=== PATIENT | female | born 1930 | race Hispanic/Latino ===

== ENCOUNTER 2019-03-13 11:44 | Observation (INO) | payer MEDICARE ==
[~2019-03-13] VITALS: Ht 152.4 cm; Wt 58.5 kg
[~2019-03-13 11:44] MED LIST: ALENDRONATE SOD70 MG PO; AMIODARONE HCL200 MG PO; GUAIFENESIN400 MG PO; HYDROCHLOROTHIA25 MG PO; LEVOTHYROXINE125 MCG PO; LEVOTHYROXINE75 MCG PO; LORAZEPAM0.5 MG PO; LOSARTAN POTAS100 MG PO; NEXIUM40 M1; NEXIUM40 MG PO; PAROXETINE HCL10 MG PO; PROPRANOLOL HCL20 MG PO
[2019-03-13 12:35] LABS: BASOPHILS % 0.3 % (0.0-1.0); EOSINOPHILS # (AUTO) 0.1 (0.0-0.4); EOSINOPHILS % 0.8 % (0.0-6.0); LYMPHOCYTES # (AUTO) 0.6 (1.0-3.2); LYMPHOCYTES % 6.4 % (18.0-39.1); MEAN CORPUSCULAR HEMOGLOBIN 30.2 pg (28-32); MEAN CORPUSCULAR HGB CONC 34.2 g/dL (31-35); MEAN CORPUSCULAR VOLUME 88.2 fL (81-99); MONOCYTES # (AUTO) 0.4 (0.2-0.8); MONOCYTES % 4.8 % (4.4-11.3); NEUTROPHILS # (AUTO) 7.6 (2.1-6.9); NEUTROPHILS % 87.4 % (38.7-80.0); PLATELET COUNT 137 x10e3/uL (140-360); RED BLOOD COUNT 4.31 x10e6/uL (3.6-5.1); RED CELL DISTRIBUTION WIDTH 14.1 % (11.7-14.4)
[2019-03-13 13:01] LABS: ALBUMIN 3.2 g/dL (3.5-5.0); ANION GAP 12.6 mmol/L (8-16); CALCIUM 8.9 mg/dL (8.4-10.2); CREATININE, SERUM 1.18 mg/dL (0.57-1.11)
[2019-03-13 13:07] LABS: POTASSIUM 2.6 mmol/L (3.5-5.1)
--- NOTE | 2019-03-13 13:12 | NUR ---
RECIVED REPORT FROM SOHA RN; PT IN LOW FOWLERS IN [facility], DENIES ANY C/O PAIN AT THIS TIME, STATES CHEST PAIN INTERMITTENT AND DESCRIBED MILD BURNING IN CHARACTHER, UNABLE TO RATE PAIN FROM 0-10, NAD NOTED, PT A/O X1; CALL LIGHT IN REACH, WILL CONTINUE TO MONITOR.
--- NOTE | 2019-03-13 13:15 | NUR ---
BEDSIDE REPORT TO ROMY Veloz
[2019-03-13 13:18] LABS: BILIRUBIN,URINE LARGE (NEGATIVE); CLARITY,URINE SL CLOUDY (CLEAR); COLOR,URINE BROWN (YELLOW); KETONES,URINE NEGATIVE (NEGATIVE); LEUKOCYTE ESTERASE ,URINE TRACE (NEGATIVE); NITRITE,URINE POSITIVE (NEGATIVE); PROTEIN,URINE DIPSTICK TRACE (NEGATIVE)
[2019-03-13] MEDS ORDERED: SODIUM CHLORIDE 0.9% 500ML 500 ML ONE (13:30)
[2019-03-13] MEDS: POTASSIUM CHLORIDE 10MEQ/100ML 100 ML IV SCH ×4 (13:30→21:51)
[2019-03-13 13:33] LABS: BACTERIA,URINE MANY /HPF; EPITHELIAL CELLS,URINE FEW /LPF
[2019-03-13] MEDS ORDERED: SODIUM CHLORIDE 0.9% 1000ML 1,000 ML IV STA (13:45)
[2019-03-13 13:56] LABS: INR 1.26; PROTHROMBIN TIME 16.4 seconds (11.9-14.5)
[2019-03-13 13:57] LABS: PARTIAL THROMBOPLASTIN TIME 38.3 seconds (23.8-35.5)
[2019-03-13] MEDS ORDERED: CEFTRIAXONE SOD 1 GM/NS 50 ML 50 ML IV ONE (14:00)
[2019-03-13 14:07] LABS: CREATINE KINASE MB 10.3 ng/mL (0-5.0)
--- NOTE | 2019-03-13 14:09 | Diagnostic Imaging Report ---
EXAMINATION: CHEST SINGLE (PORTABLE) INDICATION: Weakness COMPARISON: Chest radiograph of 07/17/2016 FINDINGS: TUBES and LINES: EKG leads overlie the chest. LUNGS: The lungs are moderately inflated. No focal consolidation or pulmonary edema. PLEURA: No pleural effusion or pneumothorax. HEART AND MEDIASTINUM: The cardiomediastinal silhouette is normal in size and contour. BONES AND SOFT TISSUES: No acute fracture or dislocation. UPPER ABDOMEN: No free air under the diaphragm. IMPRESSION: No focal pneumonia or pulmonary edema. Signed by: Dong Valdez MD on 03/13/2019 2:06 PM
--- OUTSIDE RECORDS SUMMARY | 2019-03-13 14:27 | XMS REPORT ---
Author Author [facility] Address Unknown Phone Unavailable Care Team Providers Care Curing Machine Operator Name Role Phone Bernie KHANNA Unavailable Unavailable Problems This patient has no known problems. Allergies, Adverse Reactions, Alerts This patient has no known allergies or adverse reactions. Medications This patient has no known medications. Results Test Description Test Time Test Comments Text Results Atomic Results Result Comments CHEST SINGLE (PORTABLE) 2019-03-13 14:05:00 [place] [address] Patient Name: MELO MAYORGA MR #: [id number] : 1930 Age/Sex: 88/F Req #: [id number] Adm Physician: Ordered by: SINGH TO NP Report #: [id number] Location: ER Room/Bed: Procedure: [id number] DX/CHEST SINGLE (PORTABLE) Exam Date: Exam Time: REPORT STATUS: Signed EXAMINATION: CHEST SINGLE (PORTABLE) INDICATION: Wea knmimi COMPARISON: Chest radiograph of 07/17/2016 FINDINGS: TUBES and LINES: EKG leads overlie the chest. LUNGS: The lungs are moderately inflated. No focal consolidation or pulmonary edema. PLEURA: No pleural effusion or pneumothorax. HEART AND MEDIASTINUM: The cardiomediastinal silhouette is normal in size and contour. BONES AND SOFT TISSUES: No acute fracture or dislocation. UPPER ABDOMEN: No free air under the diaphragm. IMPRESSION: No focal pneumonia or pulmonary edema. Signed by: Keeley Mayfield MD on 03/13/2019 2:06 PM Dictated By: KEELEY MAYFIELD MD 140 Transcribed By: LESLIE on 03/13/191405 COPY TO: SINGH TO NP
[2019-03-13] MEDS ORDERED: ASPIRIN 81 MG CHEW TAB PO ONE (14:30)
--- NOTE | 2019-03-13 14:43 | Diagnostic Imaging Report ---
Exam: Head CT without contrast History: Generalized weakness. Comparison studies: None Technique: Axial images were obtained from the skull base to the vertex. Coronal and sagittal images reconstructed from the axial data. Dose modulation, iterative reconstruction, and/or weight based adjustment of the mA/kV was utilized to reduce the radiation dose to as low as reasonably achievable. Radiation dose: Total DLP: 921 mGy*cm. Estimated effective dose: DLP x 0.015 Intravenous contrast: None Findings: Scalp: No abnormalities. Bones: No fractures, blastic or lytic lesions. Brain sulci: Moderately prominent Ventricles: Moderate compensatory to the. No hydrocephalus. Extra-axial spaces: No masses, no fluid collection. Parenchyma: No mass, acute hemorrhage or acute or chronic cortical insults. A few hypodensities in the supratentorial white matter are nonspecific most compatible with chronic microvascular ischemic changes. Sellar/suprasellar region: No abnormalities. Craniocervical junction: Patent foramen magnum. No Chiari one malformation. Incidental findings: Right lens replacement for previous cataract surgery. Atherosclerotic calcifications in the carotid siphons and intradural vertebral arteries. IMPRESSION: No acute intracranial abnormalities. Chronic findings: 1. Moderate generalized parenchymal volume loss. 2. Mild microvascular ischemic changes. Signed by: Dr. Jerry Julien M.D. on 03/13/2019 2:40 PM
[2019-03-13] MEDS ORDERED: POTASSIUM CHLORIDE 20 MEQ TAB CR PO ONE (15:46)
[2019-03-13 16:56] VITALS: BP 130/60
--- NOTE | 2019-03-13 17:01 | Diagnostic Imaging Report ---
EXAM: CT Abdomen and Pelvis WITH intravenous contrast INDICATION: Hyperbilirubinemia COMPARISON: None. TECHNIQUE: Abdomen and pelvis were scanned utilizing a multidetector helical scanner from the lung base to the pubic symphysis after administration of IV contrast. Coronal and sagittal reformations were obtained. Routine protocol was performed. Scan was performed when during portal venous phase. IV CONTRAST: 100 mL of Isovue-370 ORAL CONTRAST: Water COMPLICATIONS: None RADIATION DOSE: Total DLP: 381.68 mGy*cm Dose modulation, iterative reconstruction, and/or weight based adjustment of the mA/kV was utilized to reduce the radiation dose to as low as reasonably achievable. FINDINGS: LOWER THORAX: Mild bibasilar dependent subsegmental atelectasis. Postoperative findings of left mastectomy. Small sliding hiatal hernia. HEPATOBILIARY: Limited right hepatic calcifications likely related to prior granulomatous disease. No focal liver lesions. No intrahepatic biliary ductal dilatation. Common bile duct measures up to 13 mm and contains a focus of air, likely related to prior instrumentation. The gallbladder is absent. SPLEEN: No splenomegaly. PANCREAS: No focal masses or ductal dilatation. ADRENALS: No adrenal nodules. KIDNEYS/URETERS: No hydronephrosis or renal calculi. Bilateral subcentimeter hypodensities likely simple cysts. PELVIC ORGANS/BLADDER: Unremarkable. PERITONEUM / RETROPERITONEUM: No free air or fluid. LYMPH NODES: No lymphadenopathy. VESSELS: Scattered atherosclerotic calcifications of the abdominal aorta and major branches. GI TRACT: Normal bowel thickening or bowel distention. BONES AND SOFT TISSUES: No acute fracture. Degenerative changes of the visualized spine. Grade 1 anterolisthesis of L5 on S1. No suspicious lytic or blastic lesions. Anterior abdominal incisional hernia containing fat. IMPRESSION: No intrahepatic biliary ductal dilatation. No liver mass. Enlarged common bile duct with a focus of air can be seen in the setting of prior cholecystectomy and/or recent instrumentation. Signed by: Dong Valdez MD on 03/13/2019 4:57 PM
[2019-03-13] MEDS: SODIUM CHLORIDE 0.9% 1000ML 1,000 ML IV SCH (18:01)
[2019-03-13 18:27] VITALS: BP 130/60
[2019-03-13 18:42] VITALS: BP 130/60
--- NOTE | 2019-03-13 19:26 | NUR ---
REPORTS RECEIVED, PATIENT RESTING IN BED, POTASSIUM IV RUNNING, NO DISTRESS NOTED, FAMILY ON BED SIDE.
[2019-03-13] MEDS ORDERED: SODIUM CHLORIDE 0.9% 50ML 50 ML ONE (19:57)
[2019-03-13] MEDS ORDERED: IOPAMIDOL 370 MG/ML 200 ML INFUS..BTL INJ ONE (19:57)
[2019-03-13 20:01] VITALS: BP 174/77
[2019-03-13 21:40] LABS: CREATINE KINASE MB 7.5 ng/mL (0-5.0)
--- NOTE | 2019-03-13 23:30 | NUR ---
PATIENT CONFUSED, SHE PULLED HER IV LINE ON HER RIGHT FOREARM; INSERTED NEW IV LINE TO RIGHT FOREARM SIZE 20 G.
[2019-03-14] VITALS (9 sets, daily range): BP systolic 149–177; BP diastolic 69–80
[2019-03-14] MEDS: SODIUM CHLORIDE 0.9% 1000ML 1,000 ML IV SCH ×3 (02:18→15:51)
--- NOTE | 2019-03-14 05:15 | NUR ---
CALLED AND SPOKE WITH DR Bernie ESCOBAR,PATIENT'S BLOOD PRESSURE THIS MORNING IS 174/79; ORDER RECEIVED.
[2019-03-14 05:33] LABS: BASOPHILS % 0.4 % (0.0-1.0); EOSINOPHILS # (AUTO) 0.1 (0.0-0.4); EOSINOPHILS % 1.8 % (0.0-6.0); HEMATOCRIT 35.9 % (34.2-44.1); HEMOGLOBIN 12.3 g/dL (12.0-16.0); LYMPHOCYTES # (AUTO) 0.8 (1.0-3.2); LYMPHOCYTES % 10.3 % (18.0-39.1); MEAN CORPUSCULAR HEMOGLOBIN 30.2 pg (28-32); MEAN CORPUSCULAR HGB CONC 34.3 g/dL (31-35); MEAN CORPUSCULAR VOLUME 88.2 fL (81-99); MONOCYTES # (AUTO) 0.5 (0.2-0.8); MONOCYTES % 6.2 % (4.4-11.3); NEUTROPHILS % 80.8 % (38.7-80.0); PLATELET COUNT 143 x10e3/uL (140-360); RED BLOOD COUNT 4.07 x10e6/uL (3.6-5.1); RED CELL DISTRIBUTION WIDTH 14.4 % (11.7-14.4)
[2019-03-14] MEDS: LOSARTAN POTASSIUM 100 MG TAB PO SCH ×2 (05:42→08:52)
[2019-03-14 05:54] LABS: CREATINE KINASE MB 4.3 ng/mL (0-5.0)
[2019-03-14 06:09] LABS: ALANINE AMINOTRANSFERASE 318 IU/L (0-55); ALBUMIN 2.8 g/dL (3.5-5.0); ALKALINE PHOSPHATASE 139 IU/L (40-150); ANION GAP 13.7 mmol/L (8-16); BLOOD UREA NITROGEN 23 mg/dL (7-26); BUN/CREATININE RATIO 30 (6-25); CALCIUM 8.3 mg/dL (8.4-10.2); CARBON DIOXIDE 25 mmol/L (22-29); CHLORIDE 101 mmol/L (98-107); CREATININE, SERUM 0.77 mg/dL (0.57-1.11); EST GLOMERULAR FILTRATION RATE > 60 ML/MIN (60-); GLUCOSE 78 mg/dL (74-118); POTASSIUM 3.7 mmol/L (3.5-5.1); SODIUM 136 mmol/L (136-145)
[2019-03-14] MEDS ORDERED: LORAZEPAM 0.5 MG TAB PO PRN (11:00)
[2019-03-14] MEDS: HYDROCHLOROTHIAZIDE 25 MG TAB PO SCH (12:00)
[2019-03-14] MEDS: PANTOPRAZOLE SOD 40 MG TABEC PO SCH (12:00)
[2019-03-14] MEDS: PAROXETINE HCL 20 MG TAB PO SCH (12:00)
--- NOTE | 2019-03-14 13:45 | NUR ---
Visit made by the Spiritual Care Department Pastoral Visitor, Manda Marrero. Pt sleeping soundly and no family present. Pastoral Visitor left a card describing availability of reference test clerk and instructions on how to contact a reference test clerk. ARELI MARRUFO Electronics Technician Apprentice Spiritual Care Department O: [phone] Pager: [phone] ([phone] number calling from)
[2019-03-14] MEDS ORDERED: NON-FORMULARY MEDICATION (Guaifenesin 400 MG) PO SCH (15:00)
[2019-03-14] MEDS: CEFTRIAXONE SOD 1 GM/NS 50 ML 50 ML IV SCH (15:51)
[2019-03-14] MEDS: GUAIFENESIN 200 MG/10 ML UDC PO SCH ×2 (15:51→21:55)
[2019-03-14] MEDS ORDERED: TEMAZEPAM 15 MG CAP PO PRN (21:00)
[2019-03-15] VITALS (7 sets, daily range): BP systolic 134–180; BP diastolic 64–79
[2019-03-15] MEDS: SODIUM CHLORIDE 0.9% 1000ML 1,000 ML IV SCH ×3 (01:14→14:08)
[2019-03-15] MEDS ORDERED: LEVOTHYROXINE SODIUM 75 MCG TAB PO SCH (06:00)
--- NOTE | 2019-03-15 06:55 | NUR ---
rounded with manufacturing shift supervisor nurse patient resting comfortably with son at bedside. call lacy within reach, bed in lowest position and bed alarm is on.
[2019-03-15] MEDS: GUAIFENESIN 200 MG/10 ML UDC PO SCH ×2 (08:20→14:27)
[2019-03-15] MEDS: LOSARTAN POTASSIUM 100 MG TAB PO SCH (08:20)
[2019-03-15] MEDS: HYDROCHLOROTHIAZIDE 25 MG TAB PO SCH (08:20)
[2019-03-15] MEDS: PANTOPRAZOLE SOD 40 MG TABEC PO SCH (08:20)
[2019-03-15] MEDS: PAROXETINE HCL 20 MG TAB PO SCH (08:20)
[2019-03-15] MEDS ORDERED: PAROXETINE HCL 10 MG PO SCH (09:00)
[2019-03-15] MEDS ORDERED: LOSARTAN POTASSIUM 100 MG TAB PO SCH (09:00)
[2019-03-15] MEDS: CEFTRIAXONE SOD 1 GM/NS 50 ML 50 ML IV SCH (14:27)
--- NOTE | 2019-03-15 14:47 | NUR ---
ORDERS FOR LTAC TODAY CHOICE LETTER SIGNED D[facility] WITH [facility] NOTIFIED OF CONSULT MOT INITIATED AND PLACED IN FRONT OF PACKET AT DESK ANTICIPATE DC/TRANSFER THIS EVENING WHEN BED SECURED
--- NOTE | 2019-03-15 16:07 | NUR ---
REC'D BED 311 FOR PT AT [facility] MAY BE TRANSFERED AFTER 7PM PER DANK WINCHESTER NURSE NOTIFIED NUMBER TO CALL REPORT AND ROOM NUMBER ON MOT
--- NOTE | 2019-03-15 19:17 | NUR ---
report called to [place] to [place] for patient transfer.
--- NOTE | 2019-03-15 19:29 | NUR ---
Report received from chris RN. Report already called by chris to [facility]. Patient is resting in bed comfortably with family at bedside. Family informed that report has been called and ambulance is on its way.
--- NOTE | 2019-03-15 20:17 | NUR ---
Pt leaving unit at this time with EMS. Pt in no distress. Family headed to [facility] to meet pt.
--- NOTE | 2019-04-16 16:38 | Discharge Summary ---
CHIEF COMPLAINT: Generalized weakness. FINAL DIAGNOSES: 1. Sepsis/urinary tract infection. 2. Hypothyroidism. 3. Rhabdomyolysis. 4. Debility. DISPOSITION: LTAC placement. HOSPITAL COURSE: An 88-year-old female, known history of hypertension, osteoarthritis, hypothyroidism, major depressive disorder, and early dementia, brought to the ER with a 2-day history of generalized weakness, dysuria, and polyuria. No other complaints. Was reviewed and evaluated in the emergency room. The patient was showing no focal deficits on the neurological exam. Laboratory studies were carried out. Other diagnostic studies were carried out. Admission was made for treatment regarding generalized weakness, sepsis/UTI, rhabdomyolysis, hypothyroidism, and hypertension. We will be obtaining urine cultures. We started on IV antibiotics and IV fluids. Home medications were continued. From the ER, the patient was placed in IMCU, was on a cardiac diet, was resting comfortably. Vital signs were stable. The patient was started on IV fluids. Daily medications were continuing as well. Lab studies were being watched. Diagnostic studies were continued to be carried out. She was given temazepam 15 mg at bedtime for insomnia control. She continued to be cared for in IMCU, continued to rest comfortably. Her course of stay was unremarkable. She was receiving ceftriaxone for antibiotic coverage as well as medications and she takes daily. She will require further monitoring and management of condition and further monitoring of her antibiotics. She was noted also to be running a low elevated liver enzymes. Total bilirubin 2.0, AST 156, ALT 318, and alkaline phosphatase 157. On 03/15, she was able to be transferred to [facility] for continuation of care. IMAGING: Routine chest x-ray, finding shows no focal pneumonia or pulmonary edema. Brain CT shows no acute intracranial abnormalities. Chronic findings were reviewed. Abdomen and pelvis CT shows no intrahepatic biliary ductal dilatation. No liver mass. Enlarged common bile duct with a focus of air can be seen in the setting of prior cholecystectomy and/or recent instrumentation. Cultures, urine reveals E. coli. OTHER LABORATORY STUDIES: CBC; normal white count, normal H and H. Followup CBC normal. Urinalysis was showing a brown color, trace protein, 1+ occult blood, positive nitrites, large amount of bilirubin, 8.0 urobilinogen, 6 to 10 rbc's by high-power field, 11 to 20 wbc's per high-power field, many bacteria. Chemistries; initial electrolytes were showing potassium to be low at 2.6. Kidney functions; BUN 36 and creatinine 1.8. Glucose was normal. The initial AST and ALT are at 356 and 514. Initial bilirubin was 4.0. Three sets of cardiac enzymes were performed. Initial CPK was 1077. Followup CPKs continued to fall, final study 581. CK-MB band is high at 10.30, final study 4.30. Troponin studies were normal. She was given a secondary diagnosis of rhabdomyolysis with these findings. As mentioned, she will continue to require care regarding her condition. Case management assistance was brought in. Insurance cleared LTAC placement, transferred to [facility] for continuation of care. With transfer, she was having on-board IV access. She will continue her current MARs. Activity level as directed by me. I will be evaluating the patient at that facility daily. Adjustments to be made as needed. Dictated by MEHUL Brown Andi Patel MD CC/MODL /[id number]
== END 2019-03-15 20:17 ==
LOC: ER 11:44 → ERHOLD 14:08 → IMCU 16:33
DX: A41.9 Sepsis, unspecified organism (principal); N39.0 Urinary tract infection, site not specified; M62.82 Rhabdomyolysis; I10 Essential (primary) hypertension; G47.00 Insomnia, unspecified; E87.6 Hypokalemia; E86.0 Dehydration; Z88.6 Allergy status to analgesic agent
CPT/HCPCS: 36415 ×2; 70450; 71045; 74177; 80053 ×2; 81001; 82550 ×2; 82553 ×2; 84484 ×2; 85025 ×2; 85610; 85730; 87086; 87186; 93005; 96360 ×2; 99285; G0378 ×3; J0696 ×3; J3480; J7030 ×3; J7040; Q9967; S0164 ×2

== ENCOUNTER 2019-10-23 13:31 | Inpatient (IN) | payer MEDICARE ==
[~2019-10-23] VITALS: Ht 157.5 cm; Wt 58.5 kg
[2019-10-23] MEDS ORDERED: SODIUM CHLORIDE 0.9% 500ML 500 ML IV ONE (14:00)
[2019-10-23 14:18] LABS: BASOPHILS # (AUTO) 0.1 (0.0-0.1); BASOPHILS % 0.9 % (0.0-1.0); EOSINOPHILS # (AUTO) 0.2 (0.0-0.4); EOSINOPHILS % 3.1 % (0.0-6.0); HEMOGLOBIN 14.1 g/dL (12.0-16.0); LYMPHOCYTES # (AUTO) 2.1 (1.0-3.2); LYMPHOCYTES % 31.2 % (18.0-39.1); MEAN CORPUSCULAR HEMOGLOBIN 30.7 pg (28-32); MEAN CORPUSCULAR HGB CONC 32.8 g/dL (31-35); MEAN CORPUSCULAR VOLUME 93.7 fL (81-99); MONOCYTES # (AUTO) 0.7 (0.2-0.8); MONOCYTES % 10.8 % (4.4-11.3); NEUTROPHILS # (AUTO) 3.7 (2.1-6.9); NEUTROPHILS % 53.7 % (38.7-80.0); PLATELET COUNT 189 x10e3/uL (140-360); RED BLOOD COUNT 4.59 x10e6/uL (3.6-5.1)
[2019-10-23] MEDS ORDERED: ASPIRIN 81 MG CHEW TAB PO STA (14:28)
[2019-10-23 14:30] LABS: INR 0.99; PROTHROMBIN TIME 13.7 seconds (11.9-14.5)
[2019-10-23 14:31] LABS: PARTIAL THROMBOPLASTIN TIME 34.2 seconds (23.8-35.5)
[2019-10-23 14:37] LABS: ALANINE AMINOTRANSFERASE 11 IU/L (0-55); ALBUMIN 3.7 g/dL (3.5-5.0); ALBUMIN/GLOBULIN RATIO 1.2 (0.8-2.0); ALKALINE PHOSPHATASE 49 IU/L (40-150); ANION GAP 11.4 mmol/L (8-16); BLOOD UREA NITROGEN 32 mg/dL (7-26); BUN/CREATININE RATIO 36 (6-25); CARBON DIOXIDE 29 mmol/L (22-29); CHLORIDE 106 mmol/L (98-107); CREATINE KINASE 40 IU/L (29-168); CREATININE, SERUM 0.89 mg/dL (0.57-1.11); EST GLOMERULAR FILTRATION RATE 60 ML/MIN (60-); GLUCOSE 96 mg/dL (74-118); MAGNESIUM 1.9 MG/DL (1.3-2.1); POTASSIUM 3.4 mmol/L (3.5-5.1); SODIUM 143 mmol/L (136-145)
--- NOTE | 2019-10-23 14:55 | NUR ---
received report from DELPHI PROGRAMMERPushpa; awaiting pt's arrival to room 214.
[2019-10-23] MEDS ORDERED: POTASSIUM CHLORIDE 20 MEQ TAB CR PO STA (14:58)
[2019-10-23 15:06] LABS: BILIRUBIN,URINE NEGATIVE (NEGATIVE); CLARITY,URINE SL CLOUDY (CLEAR); COLOR,URINE YELLOW (YELLOW); KETONES,URINE NEGATIVE (NEGATIVE); LEUKOCYTE ESTERASE ,URINE TRACE (NEGATIVE); NITRITE,URINE NEGATIVE (NEGATIVE); PROTEIN,URINE DIPSTICK NEGATIVE (NEGATIVE); URINE UROBILINOGEN 0.2 mg/dL (0.2 - 1)
[2019-10-23 15:07] LABS: BACTERIA,URINE MODERATE /HPF
--- NOTE | 2019-10-23 15:07 | Diagnostic Imaging Report ---
Examination: Single AP view of the chest. COMPARISON: March 13, 2019 INDICATION: Syncope DISCUSSION: Patient is rotated. Lines/tubes: None. Lungs: The lungs are well inflated and clear. No pneumonia or pulmonary edema. Pleura: No pleural effusion or pneumothorax. Heart and mediastinum: The heart and the mediastinum are unremarkable. Bones and soft tissues: No acute bony abnormalities. IMPRESSION: 1. No acute cardiopulmonary abnormalities. Signed by: Dr. Channing Yin M.D. on 10/23/2019 3:04 PM
--- NOTE | 2019-10-23 15:44 | Diagnostic Imaging Report ---
CT BRAIN WO HISTORY: Syncope, altered mental status COMPARISON: Head CT 03/13/2019 Technique: Noncontrast axial scans were obtained from skull base to the vertex. Coronal and sagittal reconstructions obtained from the axial data. One or more of the following dose reduction techniques were used: Automated exposure control, adjustment of the mA and/or kV according to patient size, and/or utilization of iterative reconstruction technique. DISCUSSION: Scalp/Skull: Unremarkable. Brain sulci: Mildly prominent. Ventricles: Compensatory dilatation. Extra-axial spaces: No masses or fluid collections. Carotid and vertebral artery calcifications are present. Parenchyma: Mild bilateral deep white matter hypodensity is likely chronic microvascular ischemic change. Otherwise, no masses, hemorrhage, or large vascular territory acute infarct. Dural sinuses: No abnormal densities. Sellar/Suprasellar region: Intact. Skull base: Intact. Incidental findings: Right ocular lens replacement. Trace right mastoid effusion IMPRESSION: 1. No acute intracranial abnormalities. 2. Mild supratentorial chronic microvascular ischemic change. Generalized cerebral volume loss. Signed by: Dr. Adonis Ledesma M.D. on 10/23/2019 3:42 PM
[2019-10-23 16:01] VITALS: BP 170/74
--- NOTE | 2019-10-23 16:01 | NUR ---
pt arrived to room 214 via stretcher with crosstie inspector; family at bedside. pt sleeping, easily aroused, speaking in complete sentences. no signs of distress.
[2019-10-23 16:07] LABS: FREE THYROXINE INDEX 2.628 (1.4-3.8); THYROID STIMULATING HORMONE 1.283 uIU/mL (0.350-4.940)
[2019-10-23 17:36] LABS: CHOL/HDL RATIO 3.4 (3.0-3.6)
[2019-10-23 18:25] VITALS: BP 170/74
--- NOTE | 2019-10-23 19:25 | NUR ---
Patient received sitting up in bed. Family at bedside. AAO x 3. Patient had no complaints of pain. Respirations even and non-labored. Fall precautions implemented. Patient instructed to call for assistance when needed. Call light within reach.
--- NOTE | 2019-10-23 20:28 | NUR ---
Patient complained of mild chest pain with left shoulder pain. Respiratory Therapist called for EKG.
--- NOTE | 2019-10-23 20:45 | NUR ---
EKG cardiac strip records patient's rhythm as " Sinus Bradycardia as 43". Dr. Sully Patel paged regarding orders for pain medication. Awaiting call back.
[2019-10-23 20:49] VITALS: BP 139/63
[2019-10-23] MEDS ORDERED: LORAZEPAM 0.5 MG TAB PO PRN (21:00)
[2019-10-23 21:06] VITALS: BP 139/63
--- NOTE | 2019-10-23 21:38 | NUR ---
Dr. Bonita Serrano notified of patient's HR of 43 and pain to client's left shoulder. New order received for Advil (Ibuprofen) 200 mg PO Q8H PRN.
[2019-10-23] MEDS: IBUPROFEN 200 MG TAB PO PRN (22:31)
--- NOTE | 2019-10-23 22:32 | NUR ---
Patient given Ibuprofen 200 mg PO. spanish interpreter ( [id number]) explained the reason medication was being given. Patient verbalized understanding. Jello given to patient prior to administering medication.
--- NOTE | 2019-10-23 23:28 | Consultation ---
DATE OF CONSULTATION: 10/23/2019 REASON FOR CONSULTATION: Syncope. CHIEF COMPLAINT: Passing out. HISTORY OF PRESENT ILLNESS: This is an 88-year-old female with history of hypertension, hyperlipidemia, hypothyroidism, osteoporosis, reflux, asthma, left breast cancer with status post mastectomy and sick sinus syndrome. The patient presents to [facility] ER after episode of passing out per family. Cardiology was consulted to evaluate the patient. The patient is seen in room with family at bedside. The patient is a very poor historian, does not know what happened. However, from son, the patient was watching TV and which the son who is legally blind was next to her was trying to talk to her and the patient was unresponsive in which the patient's son's came into the house and noted that the patient was with her eyes rolled back and therefore called EMS for further assistance. The family reports patient was at baseline after a few minutes as if nothing happened. Currently, the patient is in no distress. She denies any dizziness, lightheadedness, chest pain, shortness of breath at this time. CT of the brain was done showing chronic microvascular ischemic changes. EKG showing sinus alfredo, heart rate 52. PAST MEDICAL HISTORY: Hypertension, hyperlipidemia, hypothyroidism, degenerative joint disease, reflux, asthma, and sick sinus syndrome. PAST SURGICAL HISTORY: Left breast mastectomy, cholecystectomy, appendectomy. FAMILY HISTORY: Mother at age of 50s, history of asthmatic attack. Father at age 92. History of diabetes. SOCIAL HISTORY: She is a . She was a domestically homemaker. No alcohol, tobacco use. ALLERGIES: TYLENOL CAUSING HIVES. HOME MEDICATIONS: Include losartan 100 mg daily, Paroxetine 10 mg daily, Lorazepam 0.5 as needed. Levothyroxine 75 mcg daily, hydrochlorothiazide 25 mg daily. Nexium 40 mg daily. REVIEW OF SYSTEMS: Unable to obtain. The patient is a poor historian. However, denies any chest pain, shortness of breath, dizziness. PHYSICAL EXAMINATION: VITAL SIGNS: Height 62 inches, weight 129 pounds, BMI 23. Temperature 98.2, pulse 50, respiratory rate 14, blood pressure 136/75, pulse ox 98% on room air. GENERAL: Appears in no distress at this time, unreliable fontana. SKIN: No rashes, bruises noted. HEENT: Normocephalic. Pupils equal, reactive. Extraocular movement intact. NECK: Trachea midline. No JVD. Soft right carotid bruit noted. HEART: Regular rate and rhythm. Soft systolic murmur noted in the right upper sternal border. PMI about 4th and 5th intercostal space. LUNGS: Bilateral breath sounds clear to auscultation. ABDOMEN: Soft, nontender, and nondistended. No organomegaly noted. MUSCULOSKELETAL: +4/5 muscle strength throughout. No lower extremity edema noted. Vascular +2 radial pulses bilaterally, +1 DP pulses bilaterally. NEUROLOGIC: Cranial nerves II through XII seem intact. LABORATORY DATA: Sodium 143, potassium 3.4, chloride 106, BUN 32, creatinine 0.8. Troponin less than 0.001. BNP 58. TSH 1.2. White count 6, hemoglobin 14, hematocrit 43, platelets 189. EKG showing sinus alfredo, heart rate 52. Chest x-ray, no acute abnormalities. CT of the brain showing chronic microvascular ischemic changes. ASSESSMENT: 1. Sick sinus syndrome. 2. Bradycardia. 3. Hypertension. 4. Hypothyroidism. PLAN: 1. The patient presents to the [facility] ER after syncopal event noted to be bradycardic in EKG, not on any AV blocking agents. EP has been consulted for possible pacemaker implantation. 2. Echo to evaluate heart function and structure. 3. We will check a carotid Doppler to evaluate carotid anatomy. 4. Continue patient on tele monitoring. 5. We will continue to evaluate patient and adjust cardiac therapy as clinical course dictates. Thank you very much for this consult. EVALUATED, AGREE WITH NOTE SSS AND SYNCOPE Dictated by Jerry Riggs NP Dereck Serrano MD DC/MODL /[id number] LÁZARO
[2019-10-24] VITALS (8 sets, daily range): BP systolic 128–174; BP diastolic 61–75
[2019-10-24 03:51] LABS: BASOPHILS # (AUTO) 0.1 (0.0-0.1); BASOPHILS % 0.8 % (0.0-1.0); EOSINOPHILS # (AUTO) 0.2 (0.0-0.4); EOSINOPHILS % 3.2 % (0.0-6.0); HEMATOCRIT 36.7 % (34.2-44.1); HEMOGLOBIN 12.4 g/dL (12.0-16.0); LYMPHOCYTES # (AUTO) 2.2 (1.0-3.2); MEAN CORPUSCULAR HEMOGLOBIN 30.9 pg (28-32); MEAN CORPUSCULAR HGB CONC 33.8 g/dL (31-35); MEAN CORPUSCULAR VOLUME 91.5 fL (81-99); MONOCYTES # (AUTO) 0.6 (0.2-0.8); MONOCYTES % 9.8 % (4.4-11.3); NEUTROPHILS # (AUTO) 3.3 (2.1-6.9); PLATELET COUNT 186 x10e3/uL (140-360); RED BLOOD COUNT 4.01 x10e6/uL (3.6-5.1); RED CELL DISTRIBUTION WIDTH 13.6 % (11.7-14.4)
[2019-10-24 04:21] LABS: CREATINE KINASE MB 0.8 ng/mL (0-5.0)
[2019-10-24 04:51] LABS: ALANINE AMINOTRANSFERASE 9 IU/L (0-55); ALBUMIN 3.3 g/dL (3.5-5.0); ALBUMIN/GLOBULIN RATIO 1.3 (0.8-2.0); ALKALINE PHOSPHATASE 36 IU/L (40-150); ANION GAP 9.8 mmol/L (8-16); BLOOD UREA NITROGEN 28 mg/dL (7-26); BUN/CREATININE RATIO 37 (6-25); CALCIUM 8.7 mg/dL (8.4-10.2); CARBON DIOXIDE 26 mmol/L (22-29); CHLORIDE 108 mmol/L (98-107); CHOL/HDL RATIO 3.3 (3.0-3.6); CHOLESTEROL 157 MD/DL (0-199); CREATININE, SERUM 0.76 mg/dL (0.57-1.11); EST GLOMERULAR FILTRATION RATE > 60 ML/MIN (60-); GLUCOSE 86 mg/dL (74-118); HDL CHOLESTEROL 48 MG/DL (40-60); LDL CHOLESTEROL 94 MG/DL (60-130); POTASSIUM 3.8 mmol/L (3.5-5.1); SODIUM 140 mmol/L (136-145); TRIGLYCERIDES 73 MG/DL (0-149)
[2019-10-24] MEDS: LOSARTAN POTASSIUM 100 MG TAB PO SCH ×2 (05:26→09:00)
[2019-10-24] MEDS: LEVOTHYROXINE SODIUM 75 MCG TAB PO SCH (05:27)
--- NOTE | 2019-10-24 07:00 | NUR ---
Walking rounds done. Patient resting comfortably. BSSR given to oncoming nurse.
--- NOTE | 2019-10-24 07:01 | NUR ---
bedside shift report received from PM RN. pt awake, alert, no signs of distress. son at bedside. will continue to monitor.
[2019-10-24] MEDS: HYDROCHLOROTHIAZIDE 25 MG TAB PO SCH (10:30)
[2019-10-24 12:17] LABS: CREATINE KINASE 68 IU/L (29-168)
--- NOTE | 2019-10-24 14:00 | NUR ---
PT BEING TRANSPORTED TO BUNCH BREAKER MACHINE OPERATOR, SON AT BEDSIDE. PT AWAKE, ALERT, IN STABLE CONDITION.
[2019-10-24] MEDS ORDERED: MIDAZOLAM HCL 2 MG/2 ML VIAL ONE (14:07)
[2019-10-24] MEDS ORDERED: LIDOCAINE 1% W/EPINEPHRINE 20 ML VIAL ONE ×2 (14:07→15:08)
[2019-10-24] MEDS ORDERED: FENTANYL CITRATE/PF 100MCG/2 ML INJ ONE (14:08)
[2019-10-24] MEDS ORDERED: SODIUM CHLORIDE 0.9% 500ML 500 ML ONE (14:09)
[2019-10-24] MEDS ORDERED: SODIUM CHLORIDE 0.9% 1000ML 1,000 ML ONE ×2 (14:09→14:41)
[2019-10-24] MEDS ORDERED: BACITRACIN 50,000 UNIT VIAL ONE (14:09)
[2019-10-24] MEDS ORDERED: VANCOMYCIN 1GM/NS 250 ML 250 ML IV ONE (14:30)
[2019-10-24] MEDS ORDERED: VANCOMYCIN 1GM/NS 250 ML 250 ML ONE (14:55)
--- NOTE | 2019-10-24 15:50 | NUR ---
RECEIVED REPORT FROM BENCH LATHE OPERATOR, AWAITING PT'S ARRIVAL BACK TO ROOM 214.
--- NOTE | 2019-10-24 16:03 | NUR ---
AMINA X-RAY TECH NOTIFIED OF STAT PORTABLE CHEST X-RAY. PATIENT BEING TRANSPORTED BACK TO ROOM 214. AMINA X-RAY TECH VERBALIZED UNDERSTANDING.
[2019-10-24] MEDS ORDERED: TRAMADOL HCL 50 MG TAB PO PRN (16:15)
[2019-10-24] MEDS ORDERED: CEFAZOLIN SOD 1 GM VIAL IV SCH (16:15)
--- NOTE | 2019-10-24 16:46 | Diagnostic Imaging Report ---
Exam: Chest one view Comparison: October 23, 2019 Clinical history: Pacemaker insertion Findings: Right subclavian dual-lead transvenous pacemaker has been inserted. The cardiac size is within normal limits. There is no evidence of pulmonary consolidation, pleural effusion, or pneumothorax. The regional osseous structures are unremarkable. Signed by: Dr. Simone Shah MD on 10/24/2019 4:43 PM
[2019-10-24] MEDS: CEFAZOLIN SOD 1 GM/NS 50ML 50 ML IV SCH (18:45)
--- NOTE | 2019-10-24 19:06 | NUR ---
BEDSIDE SHIFT REPORT GIVEN TO PM RN. PT AWAKE, ALERT, SMILING, NO SIGNS OF DISTRESS. PT HAS NO COMPLAINTS AT THIS TIME. PT'S RIGHT ARM IN SLING, IV INTACT AND PATENT. FAMILY AT BEDSIDE.
--- NOTE | 2019-10-24 19:22 | NUR ---
Patient received sitting up in bed. Family at bedside. AAO x 3. No acute distress noted. Sling on right hand and dressing over pacemaker in place. Fall precautions implemented. Patient instructed to call for assistance when needed. Call light within reach.
--- NOTE | 2019-10-24 22:34 | Consultation ---
DATE OF CONSULTATION: 10/24/2019 REASON FOR CONSULT: Bradycardia. HISTORY OF PRESENT ILLNESS: This is an 88-year-old woman with a history of hypertension, history of dementia, history of recurrent syncope. She presented this time after an episode of fall. She lost consciousness for about 1 to 2 seconds. On recovery, she was noted to be bradycardic with a heart rate in the 30s. She has remained in junctional rhythm with episodes of sinus bradycardia in the 40s, she is not taking AV robin blocking agents. She was monitored overnight off any medicines and continues to be having a heart rate in the high 30s to low 40s, sinus bradycardia. We were consulted to consider a pacemaker. REVIEW OF SYSTEMS: CONSTITUTIONAL: Negative. CARDIOVASCULAR: As per HPI. RESPIRATORY: Negative. GASTROINTESTINAL: Negative. GENITOURINARY: Negative. MUSCULOSKELETAL: Negative. EYES: Negative. ENT: Negative. ALLERGY/IMMUNOLOGY: Negative. PSYCHIATRIC: Negative. PAST MEDICAL HISTORY: Hypertension. SURGICAL HISTORY: Negative. FAMILY HISTORY: No premature coronary artery disease. SOCIAL HISTORY: Denies alcohol and smoking. PHYSICAL EXAMINATION: VITAL SIGNS: Blood pressure 148/60, pulse 40, respirations 20, O2 sats 98% GENERAL: No acute distress. HEENT: Moist mucous membranes. CARDIOVASCULAR: Regular. RESPIRATORY: Clear. ABDOMEN: Soft and nontender. MUSCULOSKELETAL: 2+ distal pulses. NEUROLOGICAL: No focal deficits. SKIN: No lesions. PSYCHIATRIC: Normal thought process with some mild confusion off and on. EKG, junctional rhythm, episodes of sinus bradycardia. IMPRESSION: 1. Symptomatic bradycardia. 2. Syncope, no reversible causes. RECOMMENDATIONS: Discussed the nature of the disease with the patient and family; went over details, benefits, risks, and indications for a pacemaker. The patient voices understanding, wishes to proceed. Family also agree with proceeding. We will proceed with a dual-chamber pacemaker. Thank you for letting us to participate in Ms. Mcdaniels's healthcare. Richard Hull MD JRC/MODL /[id number]
--- NOTE | 2019-10-24 22:40 | Operative Report ---
DATE OF PROCEDURE: 10/24/2019 SURGEON: Richard Hull MD PREPROCEDURE DIAGNOSES: 1. Symptomatic bradycardia. 2. Syncope. POSTPROCEDURE DIAGNOSES: 1. Symptomatic bradycardia. 2. Syncope. ESTIMATED BLOOD LOSS: 10 mL. COMPLICATIONS: None. PROCEDURES PERFORMED: 1. Dual chamber pacemaker placement. 2. Moderate sedation. Moderate conscious sedation was provided under my direct supervision by a sedation trained nurse. sedation approximate time, 30 minutes. Versed was used. See report for details. DESCRIPTION OF PROCEDURE: After informed consent was obtained, the patient was brought to the electrophysiology laboratory in a fasting, nonsedated state. The area over her chest was prepped and draped in the usual sterile fashion. Moderate sedation and prophylactic antibiotics were given. 1% lidocaine was used as local anesthetic and a 3 cm skin incision was made in the right subclavicular area. Electrocautery sharp and blunt dissection were used to bridge the muscular fascia and a pocket was created for event implantation of the device. Vascular access was obtained x2 in the right axillary vein using modified Seldinger technique under fluoroscopy guidance. Two six-Greek sheaths were placed. Ventricular lead advanced to the RV apex. R-wave 13, pacing 0.7 at 0.4, impedance 900, atrial lead to the right atrial appendage, P-wave 3, pacing 0.8 at 0.4, impedance 600. Sheaths were removed from the body. Leads were secured to fascia using Ethibond. Pocket was irrigated with antibiotic solution using the pulse public events facilities rental manager. Hemostasis was meticulous. Leads were connected to the device and entire pacemaker system placed in the pocket. Incision was closed using absorbable sutures and Dermabond. The patient tolerated procedure well. Procedure was incomplete. We used vancomycin powder in the pocket. SUMMARY OF HARDWARE IMPLANTED: The new pacemaker is a [employer], serial #[id number]. The ventricular lead is a [employer] [id number]. The atrial lead is a [employer] [id number]. IMPRESSION: Successful dual-chamber pacemaker implant via right axillary vein. PLAN: 1. Routine postop monitoring on telemetry bed. 2. Chest x-ray. 3. Follow up in 2 weeks. Richard Hull MD [facility] /[id number]
--- NOTE | 2019-10-24 22:45 | NUR ---
Patient attempting to get out of bed. Dr. Sully Patel paged for orders. Awaiting call back.
[2019-10-25] VITALS (8 sets, daily range): BP systolic 119–163; BP diastolic 58–69
[2019-10-25] MEDS: CEFAZOLIN SOD 1 GM/NS 50ML 50 ML IV SCH (02:30)
[2019-10-25] MEDS: LEVOTHYROXINE SODIUM 75 MCG TAB PO SCH (06:00)
--- NOTE | 2019-10-25 06:25 | NUR ---
Patient took off her sling, pulled her IV and removed dressing over pacemaker. Old IV noted with tip intact. New dressing placed over pacemaker site. Arm sling replaced . Will continue to monitor.
--- NOTE | 2019-10-25 06:50 | NUR ---
Bed-side shift report given to oncoming nurse.
--- NOTE | 2019-10-25 07:00 | NUR ---
RECEIVED BEDSIDE SHIFT REPORT FROM WORK ENVIRONMENT SAFETY INSPECTOR RN. PT DENIES NEEDS AT THIS TIME.
[2019-10-25] MEDS: HYDROCHLOROTHIAZIDE 25 MG TAB PO SCH (09:32)
[2019-10-25] MEDS: LOSARTAN POTASSIUM 100 MG TAB PO SCH (09:32)
[2019-10-25] MEDS: IBUPROFEN 200 MG TAB PO PRN (10:10)
--- NOTE | 2019-10-25 12:03 | NUR ---
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
--- NOTE | 2019-10-25 14:55 | NUR ---
Visit made by the Spiritual Care Department Pastoral Visitor, Manda Marrero. PV provided ashes for Damien Wednesday. Pastoral Visitor informed pt/family of the scope of Clinical Data Assistant Services and availability. ARELI MARRUFO Mannequin Wig Maker Spiritual Care Department O: [phone]
--- NOTE | 2019-10-25 15:10 | NUR ---
SPOKE WITH FAMILY ABOUT SNF ORDER AND CHOICE. FAMILY CHOSE [facility] AND SIGNED, FILED IN CHART.
[2019-10-25] MEDS: METOPROLOL TARTRATE 25 MG TAB PO SCH (17:58)
--- NOTE | 2019-10-25 19:15 | NUR ---
RECEIVED REPORT FROM DAY RN. PT ORIENTED X2 AT TIMES. TELE MONITOR ON BUT PT PICKING AT LEADS AND PULLING OFF SLING- RT ARM. FAMILY AT BEDSIDE. RESPIRATIONS ARE EVEN AND UNLABORED. DRESSING TO RT UPPER CHEST DRY AND INTACT- PACEMAKER PLACEMENT. WOUND CONSULT FOR SKIN RT UPPER POSTERIOR LEG- DRESSING TO AREA. PT INCONTINENT OF BLADDER . PERICARE GIVEN AND DIAPER CHANGED PRN.PT MALAGASY SPEAKING - FAMILY AT BEDSIDE BUT ARE GOING HOME FOR SHORT TIME TONIGHT. NO EDEMA NOTED. SL 20 G RT HAND. BED IN LOW POSITION. CALL LIGHT WITHIN REACH. BED ALARM ON. DENIES PAIN. BED ALARM SENSITIVITY INCREASED SINCE FAMILY TO LEAVE. NON SKID SOCKS ON.
[2019-10-26] VITALS: BP 128/66
[2019-10-26 04:00] VITALS: BP 126/61
[2019-10-26] MEDS: LEVOTHYROXINE SODIUM 75 MCG TAB PO SCH (05:41)
--- NOTE | 2019-10-26 07:00 | NUR ---
RECEIVED BEDSIDE SHIFT REPORT FROM SUPPLY CATALOGUER RN. PT DENIES NEEDS AT THIS TIME.
[2019-10-26 07:38] VITALS: BP 164/74
[2019-10-26] MEDS ORDERED: HYDROCHLOROTHIAZIDE 25 MG TAB PO SCH (09:00)
[2019-10-26] MEDS: LOSARTAN POTASSIUM 100 MG TAB PO SCH (09:17)
[2019-10-26] MEDS: METOPROLOL TARTRATE 25 MG TAB PO SCH (09:18)
--- NOTE | 2019-10-26 09:32 | NUR ---
LONG TERM FACILITY DISCHARGE INFORMATION PATIENT HAS BEEN ACCEPTED TO: NAME: [facility] [place] ADDRESS:[id number] MD: SHAWN ROOM: 106 NURSE CALL REPORT TO: [phone] IMM SIGNED AND OBTAINED (if applicable): YES THE FOLLOWING DOCUMENTS MUST ACCOMPANY PATIENT FOR TRANSFER: COPIED CHART: PACKET
[2019-10-26 09:35] VITALS: BP 164/74
--- NOTE | 2019-10-26 10:01 | NUR ---
EDUCATED ABOUT IMM, SIGNED, FILED IN CHART, WITH COPY LEFT WITH FAMILY AT BEDSIDE.
--- NOTE | 2019-10-26 10:50 | NUR ---
REPORT CALLED TO DEO GROVES AT [facility]. PT DENIES FURTHER NEEDS AT THIS TIME. FAMILY AT BEDSIDE.
--- NOTE | 2019-10-26 12:03 | NUR ---
PT TRANSPORTED AT THIS TIME BY [facility] TO [facility]. PT AND FAMILY DENY FURTHER NEEDS.
[2019-10-26] MEDS ORDERED: GUAIFENESIN/DEXTROMETHORPHAN LIQD 5 ML UDC NG SCH (21:00)
[2019-10-26] MEDS ORDERED: LORAZEPAM 0.5 MG TAB PO SCH (21:00)
== END 2019-10-26 12:03 | DRG 242 ==
LOC: ER 13:34 → ERHOLD 14:28 → MED/SURG2 15:59
PROC: 0JH606Z Insertion of Pacemaker, Dual Chamber into Chest Subcutaneous Tissue and Fascia, Open Approach (ICD-10-PCS; principal; 2019-10-24)
PROC: 02H63JZ Insertion of Pacemaker Lead into Right Atrium, Percutaneous Approach (ICD-10-PCS; 2019-10-24)
PROC: 02HK3JZ Insertion of Pacemaker Lead into Right Ventricle, Percutaneous Approach (ICD-10-PCS; 2019-10-24)
DX: I49.5 Sick sinus syndrome (principal); L89.213 Pressure ulcer of right hip, stage 3; I10 Essential (primary) hypertension; F03.90 Unspecified dementia, unspecified severity, without behavioral disturbance, psychotic disturbance, mood disturbance, and anxiety; E03.9 Hypothyroidism, unspecified; F41.9 Anxiety disorder, unspecified
CPT/HCPCS: 33208; 36415; 70450; 71045; 80053; 80061; 81001; 82550; 82553; 83735; 83880; 84436; 84443; 84479; 84480; 84484; 85025; 85610; 85730; 87086; 87186; 93005; 93041; 93306; 93880; 97139; 99152; 99153; 99284; C1785; J0690; J2250; J3010; J3370; J7030; J7040